=== PATIENT | male | born 1955 | race Caucasian/White ===

== ENCOUNTER 2017-05-25 05:19 | Inpatient (IN) | payer BC ==
[2017-05-06 11:13] VITALS: BMI 53.0
--- NOTE | 2017-05-06 11:35 | PAT Medication Instructions ---
Service Date May 06, 2017. Current Home Medication List Aspirin (Aspirin Ec), 81 MG PO QAM Atorvastatin (Lipitor), 40 MG PO QPM Furosemide (Lasix), 40 MG PO QAM Glimepiride (Glimepiride), 1 TAB PO QAM Lisinopril (Zestril), 5 MG PO QAM Metformin Hcl (Glucophage), 500 MG PO BID Multivitamin (Multivitamin), 1 TAB PO QAM Potassium Chloride (Micro-K Ext Rel), 10 MEQ PO QAM Medication Instructions For Your Scheduled Surgery - Hold the following medications 48 hours prior to surgery: Metformin Hcl (Glucophage), 500 MG PO BID - Hold the following medications the morning of surgery: Furosemide (Lasix), 40 MG PO QAM Glimepiride (Glimepiride), 1 TAB PO QAM Lisinopril (Zestril), 5 MG PO QAM Multivitamin (Multivitamin), 1 TAB PO QAM Potassium Chloride (Micro-K Ext Rel), 10 MEQ PO QAM - Take the following medications the morning of surgery with a sip of water OTHERWISE NOTHING TO EAT OR DRINK AFTER MIDNIGHT: Aspirin (Aspirin Ec), 81 MG PO QAM - Take the following medications as scheduled the night before surgery: Atorvastatin (Lipitor), 40 MG PO QPM If you have any questions please call us at [phone] or [phone] or [phone]
[2017-05-06 12:15] LABS: BASO % 0.2 %; BASO ABS # 0.02 K/uL (0-0.2); COMPLETE YES; IG% 0.3 %; LYMPH % 24.9 %; LYMPH ABS # 2.32 K/uL (1.2-3.4); MEAN CELL VOLUME 92.7 fL (80-100); MEAN CORPUSCULAR HGB CONC 32.3 g/dl (32-36); MEAN PLATELET VOLUME 10.6 fL (7.4-10.4); MONO % 8.7 %; NEUT % 63.9 %; PLATELET COUNT 226 K/uL (130-400); RED BLOOD COUNT 4.64 M/uL (4.7-6.1); WHITE BLOOD COUNT 9.33 K/uL (4.8-10.8)
[2017-05-06 12:26] LABS: BUN/CREATININE RATIO 13.1 (10-20); CALCIUM 9.1 mg/dl (8.5-10.1); CREATININE 1.07 mg/dl (0.60-1.40); POTASSIUM 4.3 mmol/L (3.5-5.1)
--- NOTE | 2017-05-06 12:29 | DIAGNOSTIC IMAGING REPORT ---
CHEST PREADMISSION(PA/LAT) HISTORY: 61 years-old Male PAT preoperative exam. No acute chest complaints COMPARISON: None available TECHNIQUE: Frontal and lateral views of the chest FINDINGS: Cardiac silhouette is mildly enlarged. No pneumothorax, pleural effusion or focal airspace consolidation. No overt pulmonary edema. Mild right hemidiaphragmatic elevation. Mild multilevel degenerative changes of the spine. Degenerative changes of the shoulders also noted. IMPRESSION: Mild cardiomegaly without acute cardiopulmonary process. The above report was generated using voice recognition software. It may contain grammatical, syntax or spelling errors. Electronically signed by: Weston Mohamud M.D. 05/06/2017 12:27 PM Dictated Date/Time: 05/06/2017 12:26 PM
[2017-05-06 12:31] LABS: URINE APPEARANCE CLEAR (CLEAR); URINE BILIRUBIN NEG (NEG); URINE COLOR YELLOW; URINE NITRITE NEG (NEG); URINE SPECIFIC GRAVITY 1.025 (1.000-1.030); UROBILINOGEN NEG (NEG)
[2017-05-06 12:34] LABS: MANUAL MICROSCOPIC REQUIRED? NO; REVIEW REQ? NO
[2017-05-06 12:35] LABS: PARTIAL THROMBOPLASTIN RATIO 1.1; PROTHROMBIN TIME (PATIENT) 10.7 SECONDS (9.0-12.0)
[2017-05-06 12:47] LABS: ESTIMATED AVERAGE GLUCOSE 169 mg/dl; HA1C FLAG Normal (Normal)
--- NOTE | 2017-05-11 13:28 | HISTORY & PHYSICAL EXAMINATION ---
DATE OF ADMISSION: 05/25/2017 CHIEF COMPLAINT: Left knee pain. HISTORY OF PRESENT ILLNESS: Mr. Ross is a 61-year-old male with a 1-year history of left knee pain. The patient rates his pain at 10/10. He has pain with his daily activities. He has limited standing and walking tolerance. Pain is worse with weightbearing. The patient has had injections, NSAIDs and knee arthroscopy in the past. He has failed conservative treatment and is scheduled for left knee replacement. PAST MEDICAL HISTORY: Hypertension, CHF, sleep apnea, and diabetes with an A1c of 7.5. He denies heart disease or DVT. SOCIAL HISTORY: The patient denies tobacco use. He rarely drinks alcohol. 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 FAMILY HISTORY: Negative for DVT. MEDICATIONS: Atorvastatin 40 mg, potassium chloride 10 mEq, metformin 500 mg 2 times daily, lisinopril 5 mg daily, Lasix 40 mg daily, and glimepiride 4 mg daily. ALLERGIES: None. REVIEW OF SYSTEMS: See HPI. Ten other systems reviewed, all negative. PHYSICAL EXAMINATION: VITAL SIGNS: Height 5 feet 11 inches, weight 360 pounds, and BMI is 50. GENERAL: This is a well-developed and well-nourished male who is alert and oriented x3. Mood and affect are appropriate. HEENT: Normocephalic and atraumatic. Mucous membranes are moist and intact. NECK: Supple without lymphadenopathy. HEART: Regular rate and rhythm without murmurs, rubs or gallops. LUNGS: Clear to auscultation without wheezes or rhonchi. ABDOMEN: Soft and nontender. Bowel sounds are equal and active. EXTREMITIES: No ecchymosis, redness or warmth. He has varus deformity. He has chronic venous stasis changes noted distally with moderate edema. Range of motion is from 3-115 degrees with no laxity. He is neurovascularly intact. X-RAY EXAMINATION: AP and lateral views show joint space narrowing and osteophyte formation mainly in the medial compartment. IMPRESSION: Degenerative joint disease, left knee. PLAN: The patient will be admitted for a left total knee arthroplasty. We will plan on aspirin for DVT prophylaxis. The patient understands he is at high risk due to his morbid obesity, diabetic history and venous stasis changes. He is aware and is still agreeable to elective left total knee replacement.
[2017-05-25] VITALS (8 sets, daily range): BP systolic 112–149; BP diastolic 70–84; PULSE 80–91; TEMP 36.5–37; O2SAT 92–97; Ht 180.3 cm; Wt 172.8 kg
[~2017-05-25] VITALS: Ht 180.3 cm; Wt 172.8 kg
[~2017-05-25 05:19] MED LIST: ASPI81TA28 PO; ATOR-24 PO; FRS/40 PO; GLC/500 PO; GLIM1TAB2 PO; LISI-729 PO; MULT-506 PO; POTA10CA28 PO
[2017-05-25] MEDS ORDERED: CeleBREX 200 MG CAP PO SCH (06:00)
[2017-05-25] MEDS ORDERED: DEXAMETHASONE 4 MG TAB PO SCH (06:00)
[2017-05-25] MEDS ORDERED: ACETAMINOPHEN 500 MG TAB PO SCH (06:00)
[2017-05-25] MEDS ORDERED: GABAPENTIN 300 MG CAP PO SCH (06:00)
[2017-05-25] MEDS ORDERED: METOCLOPRAMIDE HCL 10 MG TAB PO SCH (06:00)
[2017-05-25] MEDS ORDERED: LACTATED RINGER'S 1000ML IV SCH ×2 (06:00)
[2017-05-25] MEDS ORDERED: LACTATED RINGER'S 500 ML IV SCH (06:00)
[2017-05-25] MEDS ORDERED: CEFAZOLIN 3000MG IV PUSH 15 ML IV SCH (06:00)
[2017-05-25] MEDS ORDERED: BUPIVACAINE 0.5 % 5 MG/1 ML PF 10ML VIAL ONE (06:23)
[2017-05-25] MEDS ORDERED: ROPIVACAINE 0.5% 5 MG/ML 30 ML VIAL ONE (06:23)
[2017-05-25] MEDS ORDERED: ACET500C13 PO (06:36)
[2017-05-25] MEDS ORDERED: MIDAZOLAM HCL 1 MG/ML 2ML VIAL ONE ×2 (06:45→07:07)
[2017-05-25] MEDS ORDERED: FENTANYL CITRATE INJ 50 MCG/1 ML 2 ML VIAL ONE (06:47)
[2017-05-25] MEDS ORDERED: POVIDONE-IODINE OP SOLN 30 ML BTL ONE (06:56)
[2017-05-25] MEDS ORDERED: BACITRACIN 50000 UNIT VIAL ONE (06:56)
[2017-05-25] MEDS ORDERED: ROPIVACAINE 5MG/ML 30 ML 150 MG, BUPIVACAINE 0.5% MPF INJ 30 ML, EpINEphrine HCL INJ 0.... INFIL SCH ×8 (07:00)
--- NOTE | 2017-05-25 07:02 | History & Physical Bridge Note ---
H&P Re-Evaluation Bridge Note: I have examined the patient, reviewed the History & Physical and in the interval since the performance of the History & Physical I have noted the following changes of clinical significance: No changes noted
[2017-05-25] MEDS: TRANEXAMIC ACID INJ 1,000 MG in SYRINGE 0 ML IV SCH ×2 (07:45→09:48)
[2017-05-25] MEDS ORDERED: PHENYLEPHRINE 100MCG/ML 5ML SYR IV PRN (08:30)
[2017-05-25] MEDS ORDERED: ONDANSETRON INJ 2 MG/ML 2 ML VIAL IV PRN ×2 (08:30→10:45)
[2017-05-25] MEDS ORDERED: HYDROmorphone INJ 2 MG/ML SYR/VIAL IV PRN (08:30)
[2017-05-25] MEDS ORDERED: ATROPINE SULFATE 0.1 MG/ML 5ML SYR IV PRN (08:30)
[2017-05-25] MEDS ORDERED: EpHEDrine SULFATE INJ 50 MG/ML AMP IV PRN (08:30)
--- NOTE | 2017-05-25 09:53 | [facility] Operative Report ---
Operative Report Operative Date May 25, 2017. Pre-Operative Diagnosis Left knee degenerative joint disease Post-Operative Diagnosis Left knee degenerative joint disease Procedure(s) Performed Left total knee arthroplasty, cemented Curtis nephew journey to non-block size 7 femur 6 tibia 10 Laverne [address] Jenkins Veneer Department Manager Surgeon(s) Sly Mohamud PA-C Estimated Blood Loss 10 mL Findings Patient presents severe subchondral DJD subchondral sclerosis and cystic changes large loss fights varus alignment and knee with end-stage Tri-Chlor metal degenerative joint disease Specimens A: Left knee bone and tissue Complication(s) None Disposition Recovery Room / PACU Indications Patient's failed attempts at conservative management presents with physical for failing physical therapy bracing relative rest activity modification as well as viscus supplementation corticosteroid injections Description of Procedure After proper prepping and draping of the left lower extremity anterior midline incision was made over the region of the extensor extensor mechanism after meticulous hemostasis was obtained and maintained in subcutaneous tissues a medial parapatellar incision was made The patella was subluxed lateralward the medial lateral gutter were cleaned from any hypertrophic synovitis and scar tissue of the distal femoral block was placed and the distal femoral osteotomy cut was made subsequently the chamfers anterior and posterior osteotomy cuts were made utilizing the 4-in-1 block the tibia was subsequently subluxed anteriorward medial and ateral meniscal remnants were excised in their entirety remnants of the anterior and posterior cruciate ligaments were excised in their entirety excellent exposure of the proximal tibia was obtained the tibial osteotomy guide was placed on the proximal tibial osteotomy cut was made once again the knee was irrigated with copious amounts of sterile saline solution the patella was subsequently everted lateralward thickened scar tissue around the patella was removed the patella was subsequently cut utilizing a freehand technique and was drilled prepared for final preparation and placement of patella socially flexion-extension gaps were checked and the equal and symmetric trials were placed to the appropriate femoral and tibial trials with poly-spacer being placed for equal flexion and extension gaps and full range of motion including extension to 0 and flexion to 140 the trial components after having been taken to recovery range of motion was subsequently removed meticulous hemostasis was obtained and maintained subsequently a knee block injection of joint cocktail including ropivacaine 0.5% 150 mg. Bupivacaine 0.5 % epinephrine 1-200,030 mL's toradol 30 mg dexamethasone 4 mg ketamine 10 mg clonidine 100 micrograms normal saline solution 30 mg was infiltrated into the soft tissues of the posterior knee medial lateral gutters and periosteal synovium special attention was paid to protect neurovascular structures at all times subsequently trial components having been removed the knee was irrigated with sterile saline solution. debris was removed the proximal tibia was subsequently prepared and was made ready for the placement of the tibial component tibial component was also cemented and tamped into position the femoral component was subsequently placed and cemented in the position the patellar component was subsequently cemented in position because hemostasis once again obtained and maintained wound having been thoroughly irrigated with debridement and debridement lavage was performed as well as a medial parapatellar incision closed with #1 Vicryl in interrupted fashion subcutaneous was closed with #2 Vicryl skin was closed with skin clips. PA-C was necessary for prepping and drapping as well as wound closure of deep fascia Sub cutaneous tissue and skin and was necessary for the case. A sterile compressive dressing was placed patient was taken to recovery in stable condition of report dictated by Gregory I attest to the content of the Intraoperative Record and any orders documented therein. Any exceptions are noted below. I attest to the content of the Intraoperative Record and any orders documented therein. Any exceptions are noted below.
[2017-05-25] MEDS ORDERED: BISACODYL 10 MG SUPP PR PRN (10:45)
[2017-05-25] MEDS ORDERED: TAMSULOSIN HCL 0.4 MG CAP PO PRN (10:45)
[2017-05-25] MEDS ORDERED: TRAMADOL HCL 50 MG TAB PO PRN (10:45)
[2017-05-25] MEDS ORDERED: ALUMINUM/MAGNESIUM/SIMETH (MAALOX MAX) 30 ML UDC PO PRN (10:45)
[2017-05-25] MEDS ORDERED: MoRPHine SULFATE 2 MG/ML CARP IV PRN ×2 (10:45→12:15)
[2017-05-25] MEDS ORDERED: MAGNESIUM HYDROXIDE SUSP 30 ML UDC PO PRN (10:45)
--- NOTE | 2017-05-25 11:01 | DIAGNOSTIC IMAGING REPORT ---
L KNEE 1 OR 2 VIEWS ROUTINE CLINICAL HISTORY: Postop knee arthroplasty. History of degenerative arthritis. COMPARISON: None. DISCUSSION: There are postsurgical changes of a total left knee arthroplasty and patellar resurfacing. The femoral tibial components appear well seated. Overlying skin gayle and surgical drains are evident. There is air within the soft tissues consistent with recent surgery. IMPRESSION: Postsurgical changes of a total left knee arthroplasty. Electronically signed by: Ra Mack M.D. 05/25/2017 10:59 AM Dictated Date/Time: 05/25/2017 10:59 AM
--- NOTE | 2017-05-25 11:35 | Anesthesiology Progress Note ---
Anesthesia Post Op Note Date & Time May 25, 2017 at 11:35 Vital Signs Pain Intensity: 0 Vital Signs Past 12 Hours Date Time Temp Pulse Resp B/P (MAP) Pulse Ox O2 Delivery O2 Flow Rate FiO2 05/25/17 11:30 112/76 05/25/17 11:28 90 16 05/25/17 11:28 89 16 95 05/25/17 11:25 112/75 05/25/17 11:23 90 14 95 05/25/17 11:23 89 14 05/25/17 11:21 36.6 05/25/17 11:21 113/76 05/25/17 11:18 88 14 05/25/17 11:18 87 14 97 05/25/17 11:17 89 16 95 05/25/17 11:17 90 16 05/25/17 11:16 120/67 05/25/17 11:12 88 14 05/25/17 11:12 88 14 95 05/25/17 11:10 120/69 05/25/17 11:07 84 16 05/25/17 11:07 83 16 96 05/25/17 11:06 85 14 05/25/17 11:06 85 14 100/68 94 05/25/17 11:01 78 13 05/25/17 11:01 79 13 95 05/25/17 11:00 113/74 05/25/17 10:59 36.6 05/25/17 10:57 81 16 05/25/17 10:57 82 16 94 05/25/17 10:55 113/77 05/25/17 10:52 79 15 05/25/17 10:52 78 15 96 05/25/17 10:51 81 15 05/25/17 10:51 82 15 118/70 95 05/25/17 10:46 82 20 05/25/17 10:46 82 20 95 05/25/17 10:45 79 17 05/25/17 10:45 77 17 130/72 96 05/25/17 10:41 121/70 05/25/17 10:40 82 16 05/25/17 10:40 81 16 100 05/25/17 10:36 122/72 05/25/17 10:35 81 21 100 05/25/17 10:35 82 21 05/25/17 10:30 86 18 112/62 99 05/25/17 10:30 86 18 05/25/17 10:30 36.6 86 18 112/62 99 Nasal Cannula 2 05/25/17 05:45 36.7 86 20 130/84 94 Room Air Notes Mental Status: alert / awake / arousable, participated in evaluation Pt Amnestic to Procedure: Yes Nausea / Vomiting: adequately controlled Pain: adequately controlled Airway Patency, RR, SpO2: stable & adequate BP & HR: stable & adequate Hydration State: stable & adequate Anesthetic Complications: no major complications apparent
[2017-05-25] MEDS ORDERED: MoRPHine SULFATE 10 MG/ML CARP/VIAL IV PRN (12:30)
[2017-05-25] MEDS ORDERED: MoRPHine SULFATE 4 MG/ML 1 ML CARP\\VIAL IV PRN (12:30)
[2017-05-25] MEDS ORDERED: GLUCOSE 40% GEL 15 GM TUBE PO PRN (12:45)
[2017-05-25] MEDS ORDERED: DEXTROSE 50% 50 ML SYR IV PRN (12:45)
[2017-05-25] MEDS ORDERED: GLUCOSE 10 TABS/TUBE PO PRN (12:45)
[2017-05-25] MEDS ORDERED: GLUCAGON FOR INJ 1 MG VIAL SQ PRN (12:45)
[2017-05-25] MEDS: INSULIN ASPART 100 UNITS/ML 3 ML PEN SC SCH ×3 (13:38→21:13)
[2017-05-25] MEDS: CEFAZOLIN IV 2,000 MG in SYRINGE 0 ML IV SCH (16:02)
[2017-05-25] MEDS: ACETAMINOPHEN 500 MG TAB PO SCH (16:02)
[2017-05-25] MEDS: SODIUM CHLORIDE 0.9% 1000ML 1,000 ML IV SCH (17:23)
[2017-05-25] MEDS: FERROUS GLUCONATE 324 MG TAB PO SCH (17:23)
[2017-05-25] MEDS: CeleBREX 200 MG CAP PO SCH (21:05)
[2017-05-25] MEDS: ATORVASTATIN 20 MG TAB PO SCH (21:06)
[2017-05-25] MEDS: DOCUSATE SODIUM 100 MG CAP PO SCH (21:06)
[2017-05-25] MEDS: SENNA 8.6 MG TAB PO SCH (21:07)
[2017-05-26] MEDS: ACETAMINOPHEN 500 MG TAB PO SCH ×4 (00:38→23:42)
[2017-05-26] MEDS: CEFAZOLIN IV 2,000 MG in SYRINGE 0 ML IV SCH (00:38)
[2017-05-26] MEDS: SODIUM CHLORIDE 0.9% 1000ML 1,000 ML IV SCH ×2 (03:18→06:24)
[2017-05-26 03:41] VITALS: BP 112/71; PULSE 88; TEMP 36.7; O2SAT 95
[2017-05-26 07:02] VITALS: BP 129/80; PULSE 89; TEMP 36.6; O2SAT 96
[2017-05-26 07:03] LABS: HEMATOCRIT 34.7 % (42-52); MEAN CELL VOLUME 89.9 fL (80-100); MEAN CORPUSCULAR HEMOGLOBIN 29.8 pg (25-34); MEAN CORPUSCULAR HGB CONC 33.1 g/dl (32-36); MEAN PLATELET VOLUME 10.5 fL (7.4-10.4); PLATELET COUNT 180 K/uL (130-400); RED BLOOD COUNT 3.86 M/uL (4.7-6.1)
--- NOTE | 2017-05-26 07:20 | Orthopedic Progress Note ---
Orthopedic Progress Note Date of Service May 26, 2017. Subjective Post OP Day: 1 Reports: feeling well, Denies: chest pain, SOB, nausea / vomiting, light headedness, calf pain Objective calves soft nontender, N/V intact, dressing C/D/I, A&O x3, toes mobile Date Time Temp Pulse Resp B/P (MAP) Pulse Ox O2 Delivery O2 Flow Rate FiO2 05/26/17 07:02 36.6 89 19 129/80 (96) 96 Room Air 05/26/17 03:41 36.7 88 18 112/71 (85) 95 CPAP 05/26/17 00:45 Room Air 05/25/17 23:35 36.9 91 20 112/73 (86) 92 Room Air 05/25/17 19:26 37.0 89 18 133/84 (100) 95 Nasal Cannula 2.0 05/25/17 16:00 Nasal Cannula 2.0 05/25/17 14:56 37.0 80 17 149/78 (101) 97 Nasal Cannula 2.0 05/25/17 13:41 36.9 81 16 141/74 (96) 96 Nasal Cannula 2.0 05/25/17 12:49 36.7 80 18 138/77 (97) 96 Nasal Cannula 2.0 05/25/17 12:19 36.5 80 16 130/79 (96) 95 2.0 05/25/17 11:45 36.9 81 16 135/70 (91) 95 Nasal Cannula 2.0 05/25/17 11:45 Nasal Cannula 2.0 05/25/17 11:45 Nasal Cannula 2.0 05/25/17 11:30 112/76 05/25/17 11:28 90 16 05/25/17 11:28 89 16 95 05/25/17 11:25 112/75 05/25/17 11:23 90 14 95 05/25/17 11:23 89 14 05/25/17 11:21 36.6 05/25/17 11:21 113/76 05/25/17 11:18 88 14 05/25/17 11:18 87 14 97 05/25/17 11:17 89 16 95 05/25/17 11:17 90 16 05/25/17 11:16 120/67 05/25/17 11:12 88 14 05/25/17 11:12 88 14 95 05/25/17 11:10 120/69 05/25/17 11:07 84 16 05/25/17 11:07 83 16 96 05/25/17 11:06 85 14 05/25/17 11:06 85 14 100/68 94 05/25/17 11:01 78 13 05/25/17 11:01 79 13 95 05/25/17 11:00 113/74 05/25/17 10:59 36.6 05/25/17 10:57 81 16 05/25/17 10:57 82 16 94 05/25/17 10:55 113/77 05/25/17 10:52 79 15 05/25/17 10:52 78 15 96 05/25/17 10:51 81 15 05/25/17 10:51 82 15 118/70 95 05/25/17 10:46 82 20 05/25/17 10:46 82 20 95 05/25/17 10:45 79 17 05/25/17 10:45 77 17 130/72 96 05/25/17 10:41 121/70 05/25/17 10:40 82 16 05/25/17 10:40 81 16 100 05/25/17 10:36 122/72 05/25/17 10:35 81 21 100 05/25/17 10:35 82 21 05/25/17 10:30 86 18 112/62 99 05/25/17 10:30 86 18 05/25/17 10:30 36.6 86 18 112/62 99 Nasal Cannula 2 Laboratory Results 24 Hours: Test 05/26/17 06:31 Hematocrit 34.7 % Hemoglobin 11.5 g/dL Assessment & Plan Assessment: POD 1 S/P LEFT TKA Plan: PT/OT DVT PROPH - LOVENOX FOR 2 WEEKS, THEN ASA BID FOR 2 WEEKS PAIN MGMT - OXYIR,CELEBREX,TYLENOL,TRAMADOL, MORPHINE DC PLANS - HOME WITH OPPT
[2017-05-26 07:34] LABS: BUN/CREATININE RATIO 18.3 (10-20); CREATININE 0.92 mg/dl (0.60-1.40); POTASSIUM 4.3 mmol/L (3.5-5.1)
[2017-05-26] MEDS: FERROUS GLUCONATE 324 MG TAB PO SCH ×3 (08:39→18:38)
[2017-05-26] MEDS: GLIMEPIRIDE 2 MG TAB PO SCH (08:40)
[2017-05-26] MEDS: INSULIN ASPART 100 UNITS/ML 3 ML PEN SC SCH ×4 (08:43→21:20)
[2017-05-26] MEDS: MULTIVITAMIN TAB PO SCH (08:44)
[2017-05-26] MEDS: DOCUSATE SODIUM 100 MG CAP PO SCH ×2 (08:44→21:17)
[2017-05-26] MEDS: CeleBREX 200 MG CAP PO SCH ×2 (08:44→21:17)
[2017-05-26] MEDS: LISINOPRIL 5 MG TAB PO SCH (08:45)
[2017-05-26] MEDS: PANTOprazole SOD 40 MG TAB PO SCH (08:45)
[2017-05-26] MEDS: POTASSIUM CHLORIDE 10 MEQ TABCR PO SCH (08:45)
[2017-05-26] MEDS: ENOXAPARIN 40 MG/0.4 ML SYR SQ SCH (08:46)
[2017-05-26] MEDS: OXYCODONE HCL IR 5 MG TAB (IMMEDIATE RELEASE) PO PRN ×2 (08:47→22:33)
--- NOTE | 2017-05-26 08:59 | Anesthesiology Progress Note ---
Anesthesia Post Op Note Date & Time May 26, 2017 at 08:59 Vital Signs Pain Intensity: 2.0 Vital Signs Past 12 Hours Date Time Temp Pulse Resp B/P (MAP) Pulse Ox O2 Delivery O2 Flow Rate FiO2 05/26/17 07:02 36.6 89 19 129/80 (96) 96 Room Air 05/26/17 03:41 36.7 88 18 112/71 (85) 95 CPAP 05/26/17 00:45 Room Air 05/25/17 23:35 36.9 91 20 112/73 (86) 92 Room Air Notes Mental Status: alert / awake / arousable, participated in evaluation Pt Amnestic to Procedure: Yes Nausea / Vomiting: adequately controlled Pain: adequately controlled Airway Patency, RR, SpO2: stable & adequate BP & HR: stable & adequate Hydration State: stable & adequate Neuraxial Anesthesia: sensory block resolved Anesthetic Complications: no major complications apparent
[2017-05-26] MEDS ORDERED: GLIMEPIRIDE 2 MG TAB PO SCH (09:00)
--- NOTE | 2017-05-26 10:22 | Clinical Documentation Query ---
CLINICAL VALIDATION *A significantly high ( > 40) or low ( < 19) BMI will qualify as a CC and impact the severity of illness and risk of mortality of your patient. *A BMI > 40 is an endocrine diagnosis (MDC 10). *Morbid obesity is defined by the [employer] [place] [employer] as having a BMI >40 or, being 100 pounds or more above ideal body weight or, having a BMI >35 with one or more co-morbid conditions. *The Adult BMI diagnoses are for persons over the age of 21; the Pediatric BMI diagnoses are for persons 2-20 years of age. However, the associated diagnosis (such as overweight, obesity, acute stroke, or pressure ulcer) must be documented by the patient's provider. If there is conflicting medical record documentation, either from the same clinician or different clinicians, the patient's attending provider should be queried for clarification. The patient has a BMI of 53.2. In your clinical opinion is this patient being managed for: ( x ) Obesity ( ) Not Agree Please clarify and document your clinical opinion in the progress notes and discharge summary. Terms such as "probable", "suspected", "likely", "questionable", "possible", or "still to be ruled out" are acceptable. IF IN AGREEMENT, YOU MUST DOCUMENT ABOVE DIAGNOSTIC STATEMENT IN DAILY PROGRESS NOTES AND DISCHARGE SUMMARY. This document is not part of the patient's record. Thank You, Yoselyn Valle RN [phone]
[2017-05-26 12:41] VITALS: BP 125/80
[2017-05-26 15:50] VITALS: BP 110/70; PULSE 94; TEMP 36.6; O2SAT 97
--- NOTE | 2017-05-26 15:52 | Discharge Instructions ---
Discharge Instructions Date of Service May 26, 2017. Admission Reason for Admission: Left Knee Osteoarthritis Discharge Discharge Diagnosis / Problem: Left Knee Djd Discharge Goals Goal(s): Decrease discomfort, Improve function, Increase independence Activity Recommendations Activity Limitations: per Instructions/Follow-up section Weightbearing Status: Left weightbearing (as tolerated) . Instructions / Follow-Up Instructions / Follow-Up ACTIVITY RECOMMENDATIONS: SELF CARE INSTRUCTIONS AFTER TOTAL KNEE REPLACEMENT A. You may need to continue a physical therapy program after discharge from the hospital. There are several options available to you. Your doctor will assist you in selecting the best one for you. 1. An out-patient facility 2 to 3 times a week for therapy or home therapy. 2. Continue working on all exercises taught to you in the hospital. Your goals should be to increase bending of your knee to 90 degrees and beyond and to fully straighten your knee. B. You may progress at your own pace from walking with a walker or crutches to a cane; then to no assistive devices. C. Make walking a part of your daily routine. Be up as much as comfortable with rest periods throughout the day. Rest with leg elevation is very important. Use the ice wrap frequently for the first 3-4 weeks. D. There are no restrictions on activities. You may ride in a car, shop, participate in loan workout officer and all social activities. E. Wear the long elastic stockings (THOR hose) 20 hours a day for 2 weeks after surgery. They can be removed several times a day for laundering and for a bath. F. You may shower, no tub baths until cleared by your doctor. SPECIAL CARE INSTRUCTIONS: VERY IMPORTANT TO READ AND REVIEW A. There are a few signs you need to watch for after you are home. Call [facility] if you notice any of the followin. Increased severe knee pain. Some pain is expected especially when you exercise. 2. Increased swelling in your leg or knee; pain or swelling of the calf muscle in either lower leg. 3. Any fluid drainage from the incision. 4. Shortness of breath or chest pain. B. Please call [facility] at if you have any concerns or questions about your operation or recovery. The doctor or his nurse will return your call promptly. C. You must take antibiotics before dental work, bladder, bowel or other surgery. Your doctor will provide you with a permanent care to carry describing this precaution. IMPORTANT: * REMEMBER TO TAKE ASPIRIN, 81 MG, TWICE DAILY FOR 4 WEEKS UNLESS OTHERWISE DIRECTED. THIS IS YOUR BLOOD THINNER. * HIGH RISK PATIENTS MAY BE PRESCRIBED A STRONGER BLOOD THINNER. THIS WILL BE PROVIDED AT DISCHARGE. * CALL IF INCREASED PAIN, REDNESS, DRAINAGE OR FEVER GREATER THAT 101. * WEAR THOR HOSE 20 HOURS PER DAY FOR 2 WEEKS. * Prevena- This is a large suction dressing covering your incision. This will help pull any excess drainage from the wound and allow your incision to heal properly. You may shower with this if you can keep the unit outside of the shower. If any bleeding or leakage is noted please call your doctor's office. This will remain on your incision for 7 days and then should be removed. This can be done yourself or by the home nursing staff if applicable. The entire unit is disposable once removed. Once removed, keep incision clean and dry. If redness or drainage is noted, please call your surgeon. . FOLLOW UP VISIT: If appointment is not already scheduled: Please call [facility] to make a follow-up appointment for 2 weeks after your surgery at . Current Hospital Diet Patient's current hospital diet: Diabetes Type 2 Diet Discharge Diet Recommended Diet: Diabetes Type 2 Diet Procedures Procedures Performed: Left total knee arthroplasty, cemented Curtis nephew journey to non-block size 7 femur 6 tibia 10 Laverne 35 oval patella Pending Studies Studies pending at discharge: no Laboratory Results Hemoglobin A1c Test 05/06/17 11:47 Range/Units Estimated Average Glucose 169 mg/dl Hemoglobin A1c 7.5 H 4.5-5.6 % Medical Emergencies . Who to Call and When: Medical Emergencies: If at any time you feel your situation is an emergency, please call 911 immediately. . Non-Emergent Contact Non-Emergency issues call your: Surgeon Call Non-Emergent contact if: temperature is above 101.5, your pain is not controlled, your pain is worsening, wound has increased drainage, wound has increased redness . "Provider Documentation" section prepared by Sly Mohamud. . VTE Core Measure Inpt VTE Proph given/why not?: Other Anticoagulation, T.E.D. Stockings, SCD's [place] Drug Monitoring Program Search Results: patient reviewed within database, no issues identified
[2017-05-26] MEDS: SENNA 8.6 MG TAB PO SCH (21:17)
[2017-05-26] MEDS: ATORVASTATIN 20 MG TAB PO SCH (21:17)
[2017-05-26 23:08] VITALS: BP 121/77; PULSE 92; TEMP 37.1; O2SAT 95
[2017-05-27 06:44] VITALS: BP 118/70; PULSE 96; TEMP 36.7; O2SAT 93
--- NOTE | 2017-05-27 06:45 | Orthopedic Progress Note ---
Orthopedic Progress Note Date of Service May 27, 2017. Subjective Post OP Day: 2 Reports: feeling well, Denies: complaints Objective calves soft nontender, N/V intact, dressing C/D/I (prevena functioning), A&O x3 , toes mobile Date Time Temp Pulse Resp B/P (MAP) Pulse Ox O2 Delivery O2 Flow Rate FiO2 05/26/17 23:45 Room Air 05/26/17 23:08 37.1 92 17 121/77 (92) 95 05/26/17 15:50 36.6 94 16 110/70 (83) 97 Room Air 05/26/17 15:25 Room Air CPAP 05/26/17 08:35 Room Air 05/26/17 07:02 36.6 89 19 129/80 (96) 96 Room Air Assessment & Plan Assessment: POD 2 S/P LEFT TKA Plan: PT/OT DVT PROPH - LOVENOX FOR 2 WEEKS, THEN ASA BID FOR 2 WEEKS PAIN MGMT - OXYIR,CELEBREX,TYLENOL,TRAMADOL, MORPHINE DC PLANS - HOME WITH OPPT TODAY
[2017-05-27] MEDS ORDERED: SENN1TAB80 PO (06:50)
[2017-05-27] MEDS ORDERED: LVNIS40 SQ (06:50)
[2017-05-27] MEDS ORDERED: CLB200 PO (06:50)
[2017-05-27] MEDS ORDERED: RXC5 PO (06:50)
[2017-05-27] MEDS ORDERED: ACET500C13 PO (06:50)
[2017-05-27] MEDS ORDERED: ASPI81TA28 PO (06:50)
[2017-05-27] MEDS: INSULIN ASPART 100 UNITS/ML 3 ML PEN SC SCH (07:34)
[2017-05-27] MEDS: ACETAMINOPHEN 500 MG TAB PO SCH (07:37)
[2017-05-27] MEDS: GLIMEPIRIDE 2 MG TAB PO SCH (07:38)
[2017-05-27] MEDS: FERROUS GLUCONATE 324 MG TAB PO SCH (07:38)
[2017-05-27] MEDS: DOCUSATE SODIUM 100 MG CAP PO SCH (07:39)
[2017-05-27] MEDS: CeleBREX 200 MG CAP PO SCH (07:39)
[2017-05-27] MEDS: POTASSIUM CHLORIDE 10 MEQ TABCR PO SCH (07:39)
[2017-05-27] MEDS: PANTOprazole SOD 40 MG TAB PO SCH (07:40)
[2017-05-27] MEDS: MULTIVITAMIN TAB PO SCH (07:40)
[2017-05-27] MEDS: LISINOPRIL 5 MG TAB PO SCH (07:40)
[2017-05-27] MEDS: ENOXAPARIN 40 MG/0.4 ML SYR SQ SCH (07:41)
[2017-05-27] MEDS: OXYCODONE HCL IR 5 MG TAB (IMMEDIATE RELEASE) PO PRN (07:42)
[2017-05-27 08:10] VITALS: O2SAT 96
[2017-05-27 10:26] VITALS: BP 118/70; PULSE 96; TEMP 36.7; O2SAT 96
--- NOTE | 2017-05-30 12:53 | DISCHARGE SUMMARY ---
DISCHARGE DIAGNOSIS: Degenerative joint disease, left knee. SECONDARY DIAGNOSES: Hypertension, congestive heart failure, sleep apnea, and diabetes mellitus type 2. CONSULTS: None. COMPLICATIONS: None. PROCEDURE: Left total knee arthroplasty performed by Dr. Jenkins on 05/25/2017. BRIEF HISTORY: As dictated in the history and physical. HOSPITAL SUMMARY: The patient was admitted on the above-noted date and had the above-noted surgery performed, which he tolerated well. On his first postoperative day, he was feeling well and had no complaints. Calves were soft and nontender. Neurovascularly intact. Dressings clean, dry and intact. Toes were mobile. Vital signs stable. He was afebrile. Hemoglobin was 11.5. He was started on physical therapy protocol and continued on DVT prophylaxis and pain management. Plans were for him to go home with outpatient PT. By his second postoperative day, he was feeling well and had no complaints. Calves were soft and nontender. Neurovascularly intact. The Prevena dressing was functioning well. Toes were mobile. Vital signs were stable. He was afebrile and it was felt that he could be discharged to home. For further review, please see chart. LAB AND X-RAY DATA: As per chart. DISCHARGE INSTRUCTIONS: The patient was discharged to home in satisfactory condition on 05/27/2017. ACTIVITY: Weightbearing as tolerated in the left lower extremity. Follow TKA instruction sheets and special care instructions as noted. Follow up with Dr. Jenkins in 2 weeks. The patient is to call for an appointment if one has not been made for you. DISCHARGE MEDICATIONS: Celebrex 200 mg p.o. b.i.d., enoxaparin 40 mg subQ q. 24 hours for 14 days and then discontinue, oxycodone 5-10 mg p.o. q. 4 hours p.r.n., senna laxative 17.2 mg p.o. at bedtime, aspirin 81 mg p.o. b.i.d. for 14 days after Lovenox is finished, and acetaminophen 1000 mg p.o. q. 8 hours for 21 days. Resume home meds as listed and discharge instructions.
== END 2017-05-27 12:03 | disposition home or self-care (01) | DRG 470 ==
LOC: C.ACU 05:19 → C.3E 06:25 → ENRESERV 11:25
PROVIDERS: ADMIT Orthopaedic Surgery; ATTEND Orthopaedic Surgery
PROC: 0SRD0J9 Replacement of Left Knee Joint with Synthetic Substitute, Cemented, Open Approach (ICD-10-PCS; principal; 2017-05-25 08:00)
DX: M17.12 Unilateral primary osteoarthritis, left knee (principal); I11.0 Hypertensive heart disease with heart failure; G47.30 Sleep apnea, unspecified; E11.9 Type 2 diabetes mellitus without complications; I50.9 Heart failure, unspecified

== ENCOUNTER 2017-06-03 11:08 | Emergency (ER) | payer BC ==
[~2017-06-03 11:08] MED LIST changes: +ACET500C13 PO; +CLB200 PO; +LVNIS40 SQ; +RXC5 PO; +SENN1TAB80 PO
[2017-06-03 11:16] VITALS: TEMP 36.8; Ht 180.3 cm
[2017-06-03 12:18] LABS: BASO % 0.3 %; BASO ABS # 0.03 K/uL (0-0.2); COMPLETE YES; EOS % 3.1 %; HEMATOCRIT 36.5 % (42-52); IG% 0.7 %; LYMPH % 16.3 %; LYMPH ABS # 1.79 K/uL (1.2-3.4); MEAN CELL VOLUME 92.4 fL (80-100); MEAN CORPUSCULAR HEMOGLOBIN 29.4 pg (25-34); MEAN CORPUSCULAR HGB CONC 31.8 g/dl (32-36); MEAN PLATELET VOLUME 9.7 fL (7.4-10.4); MONO % 6.7 %; NEUT % 72.9 %; PLATELET COUNT 326 K/uL (130-400); RED BLOOD COUNT 3.95 M/uL (4.7-6.1); WHITE BLOOD COUNT 10.97 K/uL (4.8-10.8)
[2017-06-03 12:26] LABS: ALT/SGPT 30 U/L (12-78); BLOOD UREA NITROGEN 17 mg/dl (7-18); BUN/CREATININE RATIO 14.6 (10-20); CARBON DIOXIDE 31 mmol/L (21-32); CHLORIDE 100 mmol/L (98-107); CREATININE 1.17 mg/dl (0.60-1.40); GLUCOSE 220 mg/dl (70-99); POTASSIUM 4.4 mmol/L (3.5-5.1); SODIUM 135 mmol/L (136-145)
[2017-06-03 12:28] LABS: ALB/GLOB RATIO 0.6 (0.9-2); ALKALINE PHOSPHATASE 31 U/L (45-117); AST/SGOT 20 U/L (15-37)
--- NOTE | 2017-06-03 12:28 | EMERGENCY ROOM VISIT NOTE ---
History First contact with patient: 12:07 Chief Complaint: LEG PAIN,LEG INJURY Stated Complaint: LEG WAS HOT TO TOUCH AND PAINFUL History of Present Illness The patient is a 61 year old male who presents to the Emergency Room with complaints of severe pain in the left knee that started at approximately 4 AM this morning. The patient had a total knee replacement on 05/[address] Jenkins. Postoperatively, he has done well. He is still taking Lovenox once daily for DVT prevention. The patient denies any fever or chills. He is still able to bear weight, but notes that it is painful and stiff. He denies any injury to the knee. Review of Systems 10 system review performed and negative unless noted in HPI or below Past Medical/Surgical History Medical Problems: (1) Left knee DJD Diabetes type 2 Social History Smoking Status: Never Smoker Marital Status: Housing Status: lives with significant other Current/Historical Medications Scheduled Acetaminophen (Mapap), 2 CAP PO Q8 Aspirin (Aspirin Ec), 81 MG PO BID Atorvastatin (Lipitor), 40 MG PO QPM Celecoxib (Celebrex), 200 MG PO BID Cephalexin Monohydrate (Keflex), 500 MG PO QID Enoxaparin (Enoxaparin Sodium), 40 MG SQ Q24H Furosemide (Lasix), 40 MG PO QAM Glimepiride (Glimepiride), 1 TAB PO QAM Lisinopril (Zestril), 5 MG PO QAM Metformin Hcl (Glucophage), 1,000 MG PO BID Multivitamin (Multivitamin), 1 TAB PO QAM Potassium Chloride (Micro-K Ext Rel), 10 MEQ PO QAM Sennosides (Senna Lax), 17.2 MG PO HS Scheduled PRN Oxycodone HCl (Oxycodone HCl), 5-10 MG PO Q4H PRN for Pain Physical Exam Vital Signs Date Time Temp Pulse Resp B/P (MAP) Pulse Ox O2 Delivery O2 Flow Rate FiO2 06/03/17 15:56 91 17 108/77 96 06/03/17 14:31 92 19 102/53 95 Room Air 06/03/17 14:00 93 16 137/100 96 Room Air 06/03/17 13:12 90 20 125/69 96 Room Air 06/03/17 12:00 91 16 132/82 92 Room Air 06/03/17 11:32 90 11/24/17 11:30 94 17 137/69 96 Room Air 06/03/17 11:16 36.8 98 16 122/79 95 Room Air Physical Exam VITALS: Vitals are noted on the nurse's note and reviewed by myself. Vital signs stable. GENERAL: 61-year-old male, in no acute distress, nondiaphoretic, well-developed well-nourished. SKIN: Surgical incision noted over the left knee. Incision is intact, clean and dry. There is surrounding erythema and warmth noted. There are also approximately 4 vesicles on the skin filled with dark brown fluid. HEAD: Normocephalic atraumatic. HEART: Regular rate and rhythm without murmurs gallops or rubs. LUNGS: Clear to auscultation bilaterally without wheezes, rales or rhonchi. No accessory muscle use. ABDOMEN: Positive bowel sounds x 4.Soft, nontender, without organomegaly. No guarding or rebound tenderness. MUSCULOSKELETAL: Significant erythema, edema and warmth noted over the left knee as noted above. Flexion is approximately 75% of the left knee. DP pulse + 2 bilaterally. No tenderness noted over the calf. NEURO: Patient was alert and oriented to person place and time. Normal sensation to touch. No focal neurological deficits. Medical Decision & Procedures ER Provider Diagnostic Interpretation: knee xray IMPRESSION: Anatomic alignment status post total left knee arthroplasty. No significant change from the prior exam. No new or interval findings. The above report was generated using voice recognition software. It may contain grammatical, syntax or spelling errors. Electronically signed by: Benjamin Bond M.D. 06/03/2017 1:00 PM Dictated Date/Time: 06/03/2017 12:58 PM The status of this report is Signed. Draft = Not yet reviewed or approved by Radiologist. Signed = Reviewed and approved by Radiologist. Laboratory Results 06/03/17 11:37 Red Blood Count 3.95, Mean Corpuscular Volume 92.4, Mean Corpuscular Hemoglobin 29.4, Mean Corpuscular Hemoglobin Concent 31.8, Mean Platelet Volume 9.7, Neutrophils (%) (Auto) 72.9, Lymphocytes (%) (Auto) 16.3, Monocytes (%) (Auto) 6.7, Eosinophils (%) (Auto) 3.1, Basophils (%) (Auto) 0.3, Neutrophils # (Auto) 7.99, Lymphocytes # (Auto) 1.79, Monocytes # (Auto) 0.74, Eosinophils # (Auto) 0.34, Basophils # (Auto) 0.03 06/03/17 11:37 Test 06/03/17 11:37 06/03/17 13:03 White Blood Count 10.97 K/uL (4.8-10.8) Red Blood Count 3.95 M/uL (4.7-6.1) Hemoglobin 11.6 g/dL (14.0-18.0) Hematocrit 36.5 % (42-52) Mean Corpuscular Volume 92.4 fL (80-100) Mean Corpuscular Hemoglobin 29.4 pg (25-34) Mean Corpuscular Hemoglobin Concent 31.8 g/dl (32-36) Platelet Count 326 K/uL (130-400) Mean Platelet Volume 9.7 fL (7.4-10.4) Neutrophils (%) (Auto) 72.9 % Lymphocytes (%) (Auto) 16.3 % Monocytes (%) (Auto) 6.7 % Eosinophils (%) (Auto) 3.1 % Basophils (%) (Auto) 0.3 % Neutrophils # (Auto) 7.99 K/uL (1.4-6.5) Lymphocytes # (Auto) 1.79 K/uL (1.2-3.4) Monocytes # (Auto) 0.74 K/uL (0.11-0.59) Eosinophils # (Auto) 0.34 K/uL (0-0.5) Basophils # (Auto) 0.03 K/uL (0-0.2) RDW Standard Deviation 43.8 fL (36.4-46.3) RDW Coefficient of Variation 12.9 % (11.5-14.5) Immature Granulocyte % (Auto) 0.7 % Immature Granulocyte # (Auto) 0.08 K/uL (0.00-0.02) Anion Gap 4.0 mmol/L (3-11) Estimated GFR () 78.6 Estimated GFR (Non- 67.8 BUN/Creatinine Ratio 14.6 (10-20) Calcium Level 9.0 mg/dl (8.5-10.1) Total Bilirubin 0.5 mg/dl (0.2-1) Aspartate Amino Transf (AST/SGOT) 20 U/L (15-37) Alanine Aminotransferase (ALT/SGPT) 30 U/L (12-78) Alkaline Phosphatase 31 U/L (45-117) Total Protein 7.5 gm/dl (6.4-8.2) Albumin 2.9 gm/dl (3.4-5.0) Globulin 4.6 gm/dl (2.5-4.0) Albumin/Globulin Ratio 0.6 (0.9-2) Erythrocyte Sedimentation Rate 58 mm/hr (0-14) Total Creatine Kinase 47 U/L (39-308) Medications Administered Medications (Trade) Dose Ordered Sig/Traci Route Start Time Stop Time Status Last Admin Dose Admin Cefazolin Sodium 3000 mg/Syringe 15 ml @ 3 mls/min NOW ONCE IV 06/03/17 14:30 06/03/17 14:34 DC 06/03/17 14:46 3 MLS/MIN ED Course Patient was seen and examined Vital signs including blood pressure were reviewed medications list was verified with patient Labs were obtained, and a saline lock was established Patient declined pain medication. Imaging was performed The case was discussed with Dr. Collins with [facility] who agreed to come see the patient. The patient was given 1 dose of Ancef 3 g IV I reviewed discharge instructions the patient. They voiced understanding and had no further questions. Medical Decision Differential diagnosis: Cellulitis, wound infection, wound dehiscence, septic joint, sepsis, postoperative pain, This patient is a 61-year-old male that presented to the emergency department with complaints of redness and increased pain over the left knee. The patient had a total knee replacement done on 05/25. On exam, he did have some erythema , warmth and swelling appreciated. His workup reveals mild leukocytosis. A sedimentation rate is also slightly elevated. X-rays do not show any significant effusion. No malalignment. The patient was seen and examined by Dr. Collins from orthopedics who recommended covering the patient with antibiotics. The patient was given 1 dose of Ancef. He was put on Keflex 500 mg 4 times daily. The patient was encouraged to call as soon as possible to be seen by the [facility] in follow-up. He agrees to return to the emergency department over the weekend for any new or worsening symptoms such as increased redness, swelling, pain or fever. The patient is comfortable with this plan, and was discharged in good condition Of note, I encouraged patient to be vigilant about his blood sugars for proper wound healing. This chart was completed in part utilizing [employer] Voice Recognition software. Attempts were made to minimize the grammatical errors, random word insertions, pronoun errors and incomplete sentences. Any formal questions or concerns about the content, text or information contained within the body of this dictation should be directly addressed to the provider for clarification. Medication Reconcilliation Current Medication List: was personally reviewed by me Blood Pressure Screening Patient's blood pressure: Normal blood pressure Consults Consulting Physician: Dr. Collins Impression Primary Impression: Cellulitis Departure Information Dispostion Home / Self-Care Condition GOOD Prescriptions Cephalexin Monohydrate (Keflex) 500 Mg Cap 500 MG PO QID for 7 Days, #28 CAP Prov: Maren Michael PA-C 06/03/17 Referrals Son Lynch M.D. (PCP) Keo JenkinsD.O. Patient Instructions [facility] Additional Instructions You were evaluated in the emergency department for left knee pain and swelling. Please rest and apply ice intermittently for 20 minute intervals. Elevate the knee is much as possible. Please take the entire course of antibiotics. Please check blood sugars daily as this is very important for proper healing of the knee Please follow-up with your orthopedic doctor as soon as possible. Call Tuesday morning for a follow-up appointment. If you have any concerns over the weekend, please call the [facility] doctor on-call. Please do not hesitate to return to the emergency department with any worsening symptoms such as increased pain, redness, swelling or fever
--- NOTE | 2017-06-03 13:01 | DIAGNOSTIC IMAGING REPORT ---
L KNEE 3 VIEWS CLINICAL HISTORY: L knee pain s/p TKR 05/25 ? infection/effusion pain COMPARISON: 05/23/2017 DISCUSSION: Anatomic alignment status post total joint replacement. Good contact between prosthetic and the Bone. Surgical drains are in position. Moderate postprocedural soft tissue edema considered unremarkable. IMPRESSION: Anatomic alignment status post total left knee arthroplasty. No significant change from the prior exam. No new or interval findings. The above report was generated using voice recognition software. It may contain grammatical, syntax or spelling errors. Electronically signed by: Benjamin Bond M.D. 06/03/2017 1:00 PM Dictated Date/Time: 06/03/2017 12:58 PM
[2017-06-03] MEDS ORDERED: CEFAZOLIN SOD 1 GM VIAL IV STA (14:13)
[2017-06-03] MEDS ORDERED: CEFAZOLIN IV 3,000 MG in SYRINGE 0 ML IV ONE (14:30)
[2017-06-03] MEDS ORDERED: CEPH500C PO (15:27)
--- NOTE | 2017-06-03 15:27 | ORTHOPEDIC CONSULTATION ---
DATE OF CONSULTATION: 06/03/2017 HISTORY OF PRESENT ILLNESS: This is a 61-year-old gentleman who recently had a left total knee arthroplasty performed by Dr. Jenkins on 05/25/2017. The patient complains of worsening left knee and lower extremity pain which began approximately 4:00 a.m. this morning. He had no fevers or chills, no sweating, no nausea, no rigors. He admits to weightbearing as tolerated without any excessive walking. He does have chronic venous stasis changes which he has had chronic edema in bilateral lower extremities for the last several years. He is morbidly obese and he has a BMI of 53 with poor compliance with management of his diabetes mellitus type 2. He is still taking Lovenox for DVT prevention. He has been engaged in physical therapy as directed. PAST MEDICAL HISTORY: Type 2 diabetes mellitus, poor compliance, left knee DJD, obesity, chronic venous stasis changes, chronic edema bilateral lower extremities, and hypertension. PAST SURGICAL HISTORY: Left total knee arthroplasty on 05/25/[address] Jenkins. ALLERGIES: No known drug allergies. MEDICATIONS: Acetaminophen, aspirin 81 mg 1 p.o. b.i.d., Lipitor 40 mg p.o. q.a.m., Celebrex 200 mg 1 p.o. b.i.d., enoxaparin 40 mg subQ 24 hours, Lasix 20 mg p.o. q.a.m., glimepiride 1 tablet p.o. q.a.m., Zestril 5 mg p.o. q.a.m., glipizide 1000 mg p.o. b.i.d., multivitamin 1 p.o. daily, Micro-K 10 mEq p.o. q.a.m., senna lax 17 mg p.o. at bedtime, and oxycodone 5-10 mg p.o. q. 4 hours p.r.n. pain. SOCIAL HISTORY: Denies tobacco use. He is . He lives with his significant other. PHYSICAL EXAMINATION: GENERAL: This is a 61-year-old gentleman who is obviously obese, lying supine in the hospital room transfer cart with his significant other present. He is alert and oriented x3. Speech is clear and fluent. Affect is appropriate. Cranial nerves II-XII are grossly intact. He is wearing glasses. EXTREMITIES: Examination of the lower extremities demonstrates chronic venous stasis changes bilateral lower extremities with left greater than right. Edema 2+/4 on the left, 2/4 on the right. He has an anterior midline left total knee incision which is well coapted with multiple skin gayle. There are some fracture blisters present. They are unruptured. Small bullae measuring approximately 6 mm in diameter. No areas of focal necrosis or skin breakdown. He does have ecchymosis with a patchy distribution of the left knee consistent with total knee arthroplasty. Dorsalis pedis and posterior pulses are 1+/4, limited due to edema in bilateral lower extremities. Sensation is intact bilateral lower extremities. He has limited active and passive range of motion of the left knee due to pain and guarding. No gross purulence, no wound dehiscence. There is no maceration at the incision site which is clean, dry and intact with gayle. He has some discomfort with flexion, extension of the knee approximately 75 degrees of flexion, 0 degrees extension. Exam discomfort, not out of proportion with examination. He is able to put some pressure on the lower extremities. No fluctuance is observed. IMAGING DATA: Radiographs of the left knee demonstrate a well-aligned, stable total knee arthroplasty with midline gayle present. No evidence of dislodgement of the articular polyethylene component nor the patellar component. No obvious periprosthetic fractures. LABORATORY DATA: Reviewed with white count 10.9, hemoglobin 11.6, hematocrit 36.5, platelets 326, sed rate 58, neutrophils 72.9, lymphocytes 16.3, monocytes 6.7, eosinophils 3.1, and basophils 0.3. Blood cultures pending. IMPRESSION: 1. Left knee cellulitis status post total knee arthroplasty. 2. Chronic venous stasis changes bilateral lower extremities, left greater than right. 3. Bilateral lower extremity edema. 4. Diabetes mellitus type 2. 5. Morbid obesity. RECOMMENDATIONS: The patient was given 3 grams IV Ancef. He will be placed on Keflex 500 mg 1 p.o. q.i.d. I explained to the patient that he should maintain ice and elevation to the knee with limited activity. Continue Lovenox and use of THOR compression hose at home. Notify Dr. Jenkins' office on Tuesday and follow up when appropriate to schedule by Dr. Jenkins' clinic. Thank you for the opportunity to consult in the care of this patient.
[2017-06-03 15:56] VITALS: BP 108/77; PULSE 91; O2SAT 96
== END 2017-06-03 15:55 | disposition home or self-care (01) ==
LOC: C.EDB 11:09 → C.EDA 15:55
DX: L03.116 Cellulitis of left lower limb (principal); Z96.652 Presence of left artificial knee joint; E11.9 Type 2 diabetes mellitus without complications; E66.01 Morbid (severe) obesity due to excess calories; M17.12 Unilateral primary osteoarthritis, left knee; Z79.82 Long term (current) use of aspirin; Z79.899 Other long term (current) drug therapy